=== PATIENT | male | born 1990 | race Caucasian/White ===

== ENCOUNTER 2024-10-25 10:46 | Outpatient (CLI) | payer MEDICAID, SELFPAY ==
--- NOTE | 2024-10-25 11:00 | MR_ITS ---
WS: [id number] MRI BRAIN WITHOUT CONTRAST HISTORY: G40.909 - Epilepsy, unspecified, not intractable COMPARISON: None available. TECHNIQUE: Diffusion imaging, multiplanar T1, T2 and FLAIR imaging obtained. Unable to obtain venous access for contrast examination. No evidence for acute infarct or hemorrhage. Garcia-white matter differentiation is normal. No remote or acute infarcts are volume loss. Mild asymmetry of the lateral ventricles is normal. No inferior displacement of cerebellar tonsils. The sella turcica and pituitary gland are unremarkable. Dural venous sinuses and hoopa of Lujan demonstrate no abnormality on this unenhanced studies. Paranasal sinuses: Clear. Mastoid air cells: Normal. Calvarium and scalp: Intact. MR/MR head wo con* [id number] IMPRESSION: 1. Unremarkable noncontrast MRI brain. 2. No prior infarcts or hemorrhage.
== END 2024-10-25 10:47 | disposition home or self-care (01) ==
LOC: RAD 10:50
PROVIDERS: Visit Provider Psychiatry & Neurology Neurology
DX: G40.909 Epilepsy, unspecified, not intractable, without status epilepticus (principal)
CPT/HCPCS: 70551